=== PATIENT | male | born 1945 | race Caucasian/White ===

== ENCOUNTER 2017-04-01 15:51 | Emergency (ER) | payer OTHER ==
[~2017-04-01] VITALS: Ht 180.3 cm; Wt 96.6 kg
[~2017-04-01 15:51] MED LIST: ASPIRIN324 MG PO; CRESTOR20 MG; FISH OIL 10001000 MG PO; LISINOPRIL5 MG PO; LOMOTIL 0.025 M1 TAB PO; METOPROLOL50 MG PO; MULTIPLE VITAMI1 CAP PO; PLAVIX75 MG PO; RANEXA500 MG PO; ZOFRAN ODT8 MG PO
== END 2017-04-01 16:50 | disposition home or self-care (01) ==
LOC: ED 15:51
DX: S51.812A Laceration without foreign body of left forearm, initial encounter (principal); Z88.0 Allergy status to penicillin; Z79.899 Other long term (current) drug therapy; Z79.82 Long term (current) use of aspirin; W45.8XXA Other foreign body or object entering through skin, initial encounter; Y93.89 Activity, other specified; Y92.89 Other specified places as the place of occurrence of the external cause; Y99.8 Other external cause status

== ENCOUNTER 2017-04-13 13:54 | Emergency (ER) | payer OTHER | END 2017-04-13 14:10 | disposition home or self-care (01) | LOC: ED 13:54 | DX: S61.412D Laceration without foreign body of left hand, subsequent encounter (principal); X58.XXXD Exposure to other specified factors, subsequent encounter; Z79.82 Long term (current) use of aspirin ==

== ENCOUNTER 2017-10-11 05:01 | Emergency (ER) | payer OTHER ==
[~2017-10-11] VITALS: Ht 172.7 cm; Wt 77.1 kg
[2017-10-11 05:36] LABS: BASO % 0.3 % (0.0-1.0); EOS # 0.2 10*3/uL (0.0-0.4); EOS % 2.3 % (1.0-4.0); HEMATOCRIT 40.4 % (42.0-52.0); LYMPH # 2.1 10*3/uL (1.3-4.4); MEAN CELL VOLUME 96.9 fl (80.0-94.0); MEAN CORPUSCULAR HGB 33.6 pg (27.0-31.0); MEAN CORPUSCULAR HGB CONC 34.7 g/dl (33.0-37.0); MEAN PLATELET VOLUME 11.7 fl (9.6-12.3); MONO # 0.7 10*3/uL (0.1-1.0); MONO % 11.5 % (3.0-9.0); NEUT # 3.4 10*3/uL (2.3-7.9); NEUT % 52.7 % (47.0-73.0); PLATELET COUNT AUTOMATED 113 10*3/uL (130-400); RED BLOOD COUNT 4.17 10*6/uL (4.50-5.90); RED CELL DISTRI WIDTH 12.3 % (0-14.5); WHITE BLOOD COUNT 6.4 10*3/uL (4.8-10.8)
[2017-10-11 05:57] LABS: ALBUMIN 3.7 gm/dl (3.1-4.5); CREATININE 1.48 mg/dL (0.70-1.30); TOTAL PROTEIN 6.9 gm/dL (6.4-8.2)
[2017-10-11 05:58] LABS: TROPONIN I 0.045 ng/ml (<0.045)
[2017-10-11 06:03] LABS: THYROID STIM HORMONE (HS) 2.75 uIU/ml (0.358-4.75)
[2017-10-11] MEDS ORDERED: ATIVAN1 MG PO (07:09)
== END 2017-10-11 07:07 | disposition home or self-care (01) ==
LOC: ED 05:01
PROVIDERS: Emergency Medicine Emergency Medical Services
DX: F41.9 Anxiety disorder, unspecified (principal); F10.10 Alcohol abuse, uncomplicated; Z88.0 Allergy status to penicillin; Z79.899 Other long term (current) drug therapy; Z79.82 Long term (current) use of aspirin; Z95.4 Presence of other heart-valve replacement

== ENCOUNTER 2018-06-14 22:48 | Inpatient (IN) | payer MEDICARE ==
[~2018-06-14] VITALS: Ht 154.9 cm; Wt 95.3 kg
--- NOTE | ~2018-06-14 | EKG ---
[place], [place] ELECTROCARDIOGRAM REPORT NAME: DOMI SEAY UNIT #: [id number] ROOM: 518 DOCTOR: SHLOMO DRAFT REPORT BIRTHDATE: [birth year] [facility] Test Date: 2018-06-15 Test Time: 04:56:55 Pat Name: DOMI SEAY Department: Room: 518 Gender: M Refrigerating Engineer Head: Myke Beavers : 1945 Requested By: RANDI STOUT Order Number: [id number] Reading MD: Edu Whitehead MD Measurements Intervals [place] Rate: 46 P: 46 OK: 200 QRS: 55 QRSD: 101 T: 67 QT: 494 QTc: 432 Interpretive Statements Sinus bradycardia Probable left atrial enlargement Left ventricular hypertrophy Minimal ST elevation, anterolateral leads Compared to earlier ECG this date No significant change Electronically Signed On 06-16-2018 19:31:26 PST by Edu Whitehead MD CM:EKGRPT:ELECTROCARDIOGRAM REPORT [id number] 30 RANDI PERALES DRAFT REPORT RANDI STOUT DO
--- NOTE | ~2018-06-14 | EKG ---
[place], [place] ELECTROCARDIOGRAM REPORT NAME: DOMI SEAY UNIT #: [id number] ROOM: 518 DOCTOR: SHLOMO DRAFT REPORT BIRTHDATE: [birth year] [facility] Test Date: 2018-06-15 Test Time: 01:35:54 Pat Name: DOMI SEAY Department: Room: 518 Gender: M Field Supervisor: Myke Beavers : 1945 Requested By: RANDI STOUT Order Number: [id number] Reading MD: Edu Whitehead MD Measurements Intervals [place] Rate: 43 P: 44 MD: 188 QRS: 50 QRSD: 103 T: 56 QT: 544 QTc: 461 Interpretive Statements Sinus bradycardia Probable left atrial enlargement ST elevation, consider anterior injury Compared to 06/14/28 No significant change Electronically Signed On 06-16-2018 19:29:53 PST by Edu Whitehead MD CM:EKGRPT:ELECTROCARDIOGRAM REPORT 28 RANDI PERALES DRAFT REPORT RANDI STOUT DO
--- NOTE | ~2018-06-14 | EKG ---
[place], [place] ELECTROCARDIOGRAM REPORT NAME: DOMI SEAY UNIT #: [id number] ROOM: 518 DOCTOR: SHLOMO DRAFT REPORT BIRTHDATE: [birth year] [facility] Test Date: 2018-06-14 Test Time: 22:49:51 Pat Name: DOMI SEAY Department: Room: 518 Gender: M Rn Pediatric: Myke Beavers : 1945 Requested By: RANDI STOUT Order Number: [id number] Reading MD: Edu Whitehead MD Measurements Intervals [place] Rate: 50 P: 60 AL: 206 QRS: 54 QRSD: 98 T: 56 QT: 516 QTc: 471 Interpretive Statements Sinus rhythm Probable left atrial enlargement Left ventricular hypertrophy Nonspecific ST-T changes Electronically Signed On 06-16-2018 19:26:39 PST by Edu Whitehead MD CM:EKGRPT:ELECTROCARDIOGRAM REPORT 25 RANDI PERALES DRAFT REPORT RANDI STOUT DO
[~2018-06-14 22:48] MED LIST changes: +ATIVAN1 MG PO; +CRESTOR20 M1 PO; -CRESTOR20 MG; -FISH OIL 10001000 MG PO; +FISH OIL CONC1000 M1 PO
[2018-06-14 22:51] VITALS: BP 179/75
--- NOTE | 2018-06-14 23:03 | NUR ---
PT STATES HE TOOK 2 BABY ASPIRIN BEFORE ARRIVAL APROX 2200 HRS
[2018-06-14 23:06] LABS: BASO % 0.2 % (0.0-1.0); EOS # 0.1 10*3/uL (0.0-0.4); EOS % 1.7 % (1.0-4.0); HEMATOCRIT 44.8 % (42.0-52.0); HEMOGLOBIN 15.4 g/dl (14.0-18.0); LYMPH # 2.2 10*3/uL (1.3-4.4); LYMPH % 32.5 % (27.0-41.0); MEAN CORPUSCULAR HGB 34.4 pg (27.0-31.0); MEAN CORPUSCULAR HGB CONC 34.4 g/dl (33.0-37.0); MEAN PLATELET VOLUME 11.9 fl (9.6-12.3); MONO # 0.7 10*3/uL (0.1-1.0); NEUT # 3.6 10*3/uL (2.3-7.9); NEUT % 54.3 % (47.0-73.0); PLATELET COUNT AUTOMATED 131 10*3/uL (130-400); RED BLOOD COUNT 4.48 10*6/uL (4.50-5.90); RED CELL DISTRI WIDTH 13.2 % (0-14.5); WHITE BLOOD COUNT 6.6 10*3/uL (4.8-10.8)
[2018-06-14 23:15] LABS: INTERNATIONAL NORM RATIO 1.1 (2.0-3.5)
[2018-06-14 23:16] VITALS: BP 179/75
[2018-06-14 23:24] LABS: ALBUMIN 3.8 gm/dl (3.1-4.5); CREATININE 1.57 mg/dL (0.70-1.30); POTASSIUM 4.5 mmol/L (3.5-5.1); TOTAL PROTEIN 7.4 gm/dL (6.4-8.2)
[2018-06-14 23:25] LABS: TROPONIN I 0.016 ng/ml (<0.045)
[2018-06-14] MEDS ORDERED: ASPIRIN ADULT L81 M1 PO (23:29)
[2018-06-14] MEDS ORDERED: METOPROLOL SUCC25 M2 PO (23:32)
[2018-06-14] MEDS ORDERED: RAMIPRIL2.5 MG PO (23:33)
[2018-06-14 23:43] VITALS: BP 124/52
--- NOTE | 2018-06-14 23:47 | NUR ---
PT [facility] PHONE [phone] CELL # [phone]
[2018-06-15 00:30] VITALS: BP 152/78
--- NOTE | 2018-06-15 00:30 | NUR ---
Time: 29 A 73 year old MALE admitted to 5E under services of DEVIKA MATHUR DO Pt. arrived via bed from ER. Chief complaint: PT STATES WHEN HE WAS AT HOME HE HAD A BURNING SENSATION RADIATE DOWN HIS LEFT ARM. HE CAME IN TO MAKE SURE EVERYTHING WAS OKAY DUE TO HIS CARDIAC HISTORY. HE DENIES HAVING CHEST PAIN WHEN THE EVENT OCCURED. HEALTHY LIFESTYLES GUIDELINE REVIEWED. PT ORIENTED TO ROOM, BED, & CALL LIGHT. ASSESSMENT COMPLETE. HE VOICES NO COMPLAINTS AT THIS TIME. SHADY ALDANA
--- NOTE | 2018-06-15 00:55 | NUR ---
MED REC UP TO DATE PER PATIENT RECALL/LIST PROVIDED BY PATIENT. STATES HE USES [facility].
--- NOTE | 2018-06-15 02:04 | NUR ---
DR. ENZO BABCOCK ANSWERING SERVICE NOTIFIED OF CONSULT FOR PRECORDIAL CHEST PAIN.
--- NOTE | 2018-06-15 04:17 | NUR ---
PT IS RESTING IN BED AT THIS TIME WITH NO S/S OF PAIN OR DISTRESS. RESPIRATIONS ARE EASY AND UNLABORED ON ROOM AIR. HE IS CURRENTLY SINUS LOUIS ON THE MONITOR WITH A HEART RATE IN THE MID-40'S. HE STATES THAT THIS IS NORMAL FOR HIM. BED IS LOCKED AND IN LOWEST POSITION AND CALL LIGHT IS WITHIN REACH. WILL CONTINUE TO MONITOR PT.
--- NOTE | 2018-06-15 07:59 | NUR ---
PT RESTING IN BED, PT UPSET AND FEELS THAT A STRESS TEST IS NOT NECESSARY, PT EDUCATED ON THE BENEFITS OF HAVING THE TEST DONE PT AGREEABLE
[2018-06-15 08:00] VITALS: BP 144/74
--- NOTE | 2018-06-15 09:48 | NUR ---
INFORMED SIGNED CONSENT OBTAINED FOR LEXISCAN STRESS TEST WITH DR XIONG. RESTING EKG SINUS BRADYCARDIA HR 51 BP 90/50. PULSE OX 98% LUNGS CLEAR. PT COMPLETED ONE MINUTE OF A LEXISCAN PROTOCOL WITH PT RECEIVING LEXISCAN 0.4MG IV OVER 10 SECONDS. PVC'S NOTED. NO ST CHANGES SEEN. PT C/O A FLUSHED FEELING WITH INJECTION. LAST RECOVERY HR OF 58 BP 100/48. PT IN STABLE CONDITION, AWAITING NUCLEAR IMAGES.
[2018-06-15 12:00] VITALS: BP 134/68
--- NOTE | 2018-06-15 15:03 | NUR ---
Supervisor [employer] in to talk to patient. Patient states lives at HOME with . There are SEVERAL steps in the home. Physician: STEPHAN Pharmacy: [facility] Home health services: NONE Patient's level of ADLs: INDEPENDENT Patient has working utilities: YES DME: NONE Follow-up physician's appointment after d/c: WILL BE MADE BY HOSPITALIST NURSE DIRECTOR ON DISCHARGE Does patient want to access PORTAL?: NO Discharge plan PT STATES HE LIVES AT HOME WITH AND IS INDEPENDENT IN CARE. DENIES ANY HOME NEEDS ON [place]. PT STATES WILL TAKE HIM HOME. WILL CONTINUE TO FOLLOW.. [facility] STERLING
--- NOTE | 2018-06-15 15:28 | NUR ---
SPOKE WITH DR PARKER MORALES PT HR 48-50S AND BP 134/68 DR PARKER MERA WITH PT GETTING TOPROL
[2018-06-15 16:00] VITALS: BP 148/60
--- NOTE | 2018-06-15 17:33 | NUR ---
Discharge instructions reviewed with patient/family. Patient receptive and verbalizes understanding. Follow-up care arranged. Written instructions given to patient/family. ROCHELLE VALENZUELA
== END 2018-06-15 17:33 | disposition home or self-care (01) | DRG 313 ==
LOC: ED 22:48 → 5E 23:50 → EDHOLD 23:50 → 5E 06-15 00:09
PROVIDERS: Emergency Medicine; ADMIT Internal Medicine
PROC: 3E073KZ Introduction of Other Diagnostic Substance into Coronary Artery, Percutaneous Approach (ICD-10-PCS; principal; 2018-06-15)
PROC: 4A02XM4 Measurement of Cardiac Total Activity, External Approach (ICD-10-PCS; principal; 2018-06-15)
DX: R07.89 Other chest pain (principal); I25.810 Atherosclerosis of coronary artery bypass graft(s) without angina pectoris; I12.9 Hypertensive chronic kidney disease with stage 1 through stage 4 chronic kidney disease, or unspecified chronic kidney disease; N18.3 Chronic kidney disease, stage 3 (moderate); F41.9 Anxiety disorder, unspecified; L90.5 Scar conditions and fibrosis of skin; E78.5 Hyperlipidemia, unspecified; D75.89 Other specified diseases of blood and blood-forming organs; Z95.1 Presence of aortocoronary bypass graft; Z95.2 Presence of prosthetic heart valve; Z88.0 Allergy status to penicillin; Z80.9 Family history of malignant neoplasm, unspecified; Z87.891 Personal history of nicotine dependence; Z79.82 Long term (current) use of aspirin; Z79.899 Other long term (current) drug therapy; I25.2 Old myocardial infarction

== ENCOUNTER 2019-12-30 21:14 | Emergency (ER) | payer MEDICARE ==
[~2019-12-30] VITALS: Ht 180.3 cm; Wt 99.1 kg
[~2019-12-30 21:14] MED LIST changes: +ASPIRIN ADULT L81 M1 PO; +METOPROLOL SUCC25 M2 PO; +RAMIPRIL2.5 MG PO
[2019-12-30 21:30] LABS: BASO % 0.3 % (0.0-1.0); EOS # 0.1 10*3/uL (0.0-0.4); EOS % 1.7 % (1.0-4.0); HEMATOCRIT 47.9 % (42.0-52.0); LYMPH # 2.7 10*3/uL (1.3-4.4); LYMPH % 36.3 % (27.0-41.0); MEAN CORPUSCULAR HGB 32.9 pg (27.0-31.0); MEAN CORPUSCULAR HGB CONC 34.2 g/dl (33.0-37.0); MONO # 0.7 10*3/uL (0.1-1.0); MONO % 9.4 % (3.0-9.0); NEUT # 3.9 10*3/uL (2.3-7.9); NEUT % 52.2 % (47.0-73.0); PLATELET COUNT AUTOMATED 143 10*3/uL (130-400); RED BLOOD COUNT 4.99 10*6/uL (4.50-5.90); RED CELL DISTRI WIDTH 11.9 % (0-14.5); WHITE BLOOD COUNT 7.5 10*3/uL (4.8-10.8)
[2019-12-30 21:58] LABS: ACT PARTIAL THROMBO TIME 25.5 SECONDS (20.0-32.1); INTERNATIONAL NORM RATIO 1.1 (2.0-3.5)
[2019-12-30 22:03] LABS: ALBUMIN 3.8 gm/dl (3.1-4.5); CREATININE 1.7 mg/dL (0.70-1.30); POTASSIUM 3.9 mmol/L (3.5-5.1); TOTAL PROTEIN 7.2 gm/dL (6.4-8.2)
[2019-12-30 22:06] LABS: TROPONIN I 0.091 ng/ml (<0.045)
== END 2019-12-30 22:50 | disposition short-term general hospital (02) ==
LOC: ED 21:14
PROVIDERS: Emergency Medicine
DX: I21.3 ST elevation (STEMI) myocardial infarction of unspecified site (principal); Z88.0 Allergy status to penicillin; Z79.899 Other long term (current) drug therapy; Z79.82 Long term (current) use of aspirin; Z87.891 Personal history of nicotine dependence

== ENCOUNTER 2020-01-02 02:29 | Observation (INO) | payer MEDICARE ==
[2020-01-02] VITALS (10 sets, daily range): BP systolic 108–149; BP diastolic 68–92
[~2020-01-02] VITALS: Ht 180.3 cm; Wt 99.4 kg
[2020-01-02 02:52] LABS: BASO % 0.2 % (0.0-1.0); EOS # 0.2 10*3/uL (0.0-0.4); EOS % 1.7 % (1.0-4.0); LYMPH # 2.3 10*3/uL (1.3-4.4); LYMPH % 27.1 % (27.0-41.0); MEAN CELL VOLUME 93.6 fl (80.0-94.0); MEAN CORPUSCULAR HGB 32.8 pg (27.0-31.0); MEAN CORPUSCULAR HGB CONC 35.1 g/dl (33.0-37.0); MEAN PLATELET VOLUME 11.5 fl (9.6-12.3); NEUT # 5.2 10*3/uL (2.3-7.9); PLATELET COUNT AUTOMATED 143 10*3/uL (130-400); RED BLOOD COUNT 4.81 10*6/uL (4.50-5.90); RED CELL DISTRI WIDTH 11.7 % (0-14.5); WHITE BLOOD COUNT 8.6 10*3/uL (4.8-10.8)
[2020-01-02 03:03] LABS: ACT PARTIAL THROMBO TIME 26.1 SECONDS (20.0-32.1); INTERNATIONAL NORM RATIO 1.1 (2.0-3.5)
[2020-01-02 03:20] LABS: ALBUMIN 3.9 gm/dl (3.1-4.5); CREATININE 1.41 mg/dL (0.70-1.30); POTASSIUM 3.9 mmol/L (3.5-5.1); TOTAL PROTEIN 7.4 gm/dL (6.4-8.2)
--- NOTE | 2020-01-02 04:01 | NUR ---
PATIENT SITTING UP IN BED AT THIS TIME. NO DISTRESS NOTED. RESPIRATIONS EASY, NON-LABORED ON ROOM AIR. FAMILY UPDATED AT THIS TIME. PER PATIENT HE DOES NOT WANT FLUIDS OR ATIVAN AT THIS TIME, DR INGRAM AWARE. RN WILL CONTINUE TO MONITOR.
--- NOTE | 2020-01-02 06:10 | NUR ---
A 74, admitted to , under the services of HANSA Damon DO with a diagnosis of NEW ONSET AFIB. Chief complaint is "I FEEL LIKE I FEEL WHEN I WAS HERE ON FRIDAY BEFORE I WAS FLOWN OUT AND I KNEW SOMETHING WASN'T RIGHT. I JUST FEEL FUNNY". Patient arrived via wheel chair from ER. Monitor applied. Initial assessment completed. Vital signs taken and recorded. HANSA DAMON DO notified of admission to the unit. Orders received. See assessment for past medical history, medications and allergies. Patient and/or family oriented to unit. [address] visitation policy reviewed. Clothing/patient valuable form completed. RAPHAEL GONZALEZ
--- NOTE | 2020-01-02 06:18 | NUR ---
HERPARIN STARTED AT THIS TIME PER ORDER. VERIFIED BY THIS RN AND KENNETH MANSFIELD.
--- NOTE | 2020-01-02 06:20 | NUR ---
SCABS AND SCRATCHES NOTED TO BOTH FEET. PATIENT STATES "I WAS RETILING MY KITCHEN."
--- NOTE | 2020-01-02 06:36 | NUR ---
ANSWERING SERVICE NOTIFIED OF NEW CONSULT.
--- NOTE | 2020-01-02 08:15 | NUR ---
RESTING IN BED WITH NO ACUTE DISTRESS NOTED. RESPIRATIONS EASY. LUNGS DIMINISHED, CLEAR. PULSE OX 96% RA, DENIES SOB OR CHEST PAIN. HEPARIN INFUSING PER ORDER. CALL LIGHT WITHIN REACH. NO VOICED COMPLAINTS
--- NOTE | 2020-01-02 08:24 | NUR ---
24 HR chart check completed.
[2020-01-02] MEDS ORDERED: PANTOPRAZOLE SO40 MG PO (08:50)
[2020-01-02] MEDS ORDERED: RAMIPRIL1.25 MG PO (08:52)
--- NOTE | 2020-01-02 09:00 | NUR ---
DR Jeny MILLER PRESENT ON FLOOR. INFORMED OF CRITICAL TROPS, TRENDING DOWN. CARDIOLOGY ON CONSULT. PATIENT ASYMPTOMATIC. NO NEW ORDERS RECEIVED AT THIS TIME
--- NOTE | 2020-01-02 09:30 | NUR ---
C/O SOB. PULSE OX 96% RA. HR 88. PATIENT GIVEN O2 FOR COMFORT. UNSURE OF CHANGES TO HOME MEDS, PATIENT CONTACTING FOR UPDATED LIST
[2020-01-02] MEDS ORDERED: BRILINTA90 M1 PO (09:42)
--- NOTE | 2020-01-02 09:45 | NUR ---
HOME MEDS REVIEWED WITH PATIENT, UPDATED IN MED REC. DR ROME PRESENT ON FLOOR AND INFORMED OF CHANGES
[2020-01-02] MEDS ORDERED: Lopressor25 MG PO (09:48)
--- NOTE | 2020-01-02 14:00 | NUR ---
CALLED TO ROOM BY PATIENT, REQUESTING UPDATE. LABS AND EKG'S REVIEWED. PLAN OF CARE REVIEWED. PATIENT CLAIMS HE WAS TOLD EKG'S WOULD BE REVIEWED AND HE WOULD BE DISCHARGED BY 1400. CARDIOLOGY ON CONSULT.
--- NOTE | 2020-01-02 14:15 | NUR ---
DR Jeny MILLER PRESENT ON FLOOR TO DISCUSS CONCERNS AND PLAN OF CARE WITH PATIENT
--- NOTE | 2020-01-02 14:30 | NUR ---
HEPARIN DRIP ADJUSTED. DR BABCOCK PRESENT ON FLOOR TO ASSESS PATIENT AND DISCUSS PLAN OF CARE. DR Jeny MILLER ALSO PRESENT
--- NOTE | 2020-01-02 15:15 | NUR ---
HEPARIN DRIP D/C'D. NPO AFTER MIDNIGHT STATUS REVIEWED FOR TESTING IN AM
--- NOTE | 2020-01-02 18:00 | NUR ---
RESTING IN BED WITH NO ACUTE DISTRESS NOTED. RESPIRATIONS EASY. O2 REMAINS AT BEDSIDE FOR PRN/COMFORT USE. NO COMPLAINTS OF CHEST PAIN. CALL LIGHT WITHIN REACH.
--- NOTE | 2020-01-02 20:20 | NUR ---
IN TO ASSESS PATIENT. PATIENT COOPERATIVE, DENIES ANY COMPLAINTS AT THIS TIME. 2L NC INTACT FOR COMFORT. ASKED PATIENT IF HE KNOWS WHAT PROCEDURE WILL BE HAPPENING TOMORROW, HE STATED THAT HE DOES BUT THAT HE DIDN'T EXPECT IT TO BE ALL OF THAT AND THAT HE SUPPOSES IT HAS TO BE DONE. ASKED PATIENT IF HE HAD ANY QUESTIONS ABOUT THE PROCEDURE TO HELP EASE HIS MIND, HE STATED HE DOES NOT. ALSO MADE PATIENT AWARE OF NPO STATUS AFTER MIDNIGHT. HE VERBALIZED UNDERSTANDING. EXPLAINED TO PATIENT THAT WE WILL HAVE TO GET HIS VITALS ONE MORE TIME TONIGHT AND THEN HE CAN SLEEP. EXPLAINED TO PATIENT TO ASK FOR ANYTHING IF HE NEEDS IT. CALL LIGHT LEFT WITHIN REACH, WILL MONITOR
--- NOTE | 2020-01-02 22:42 | NUR ---
NOTIFIED DR. LYLE AT THIS TIME OF PATIENTS PAUSE FOLLOWED BY CONVERSION TO NORMAL SINUS RHYTHM WITH FREQUENT PAC'S. EXPLAINED TO HER THAT AN EKG WAS ORDERED AND DR. BABCOCK WILL BE MADE AWARE SOON THE EKG IS AVAILABLE.
--- NOTE | 2020-01-02 23:06 | NUR ---
PAGED DR. BABCOCK AT THIS TIME PERTAINING TO PATIENTS HEART RHYTHM
--- NOTE | 2020-01-02 23:10 | NUR ---
DR. BABCOCK AT THIS TIME UPDATED ON PATIENT'S EKG AND CONVERSION TO NORMAL SINUS FOLLOWED BY A LONG PAUSE AND PATIENT APPEARING TO NOW HAVE PAC'S. PATIENT ASYMPTOMATIC AND WAS SLEEPING WHEN THIS HAPPENED. DR. BABCOCK STATED THE PAUSE WILL HAPPEN BUT TO KEEP THE PATIENT NPO JUST INCASE THE PATIENT WERE TO FLIP BACK INTO AFIB AND HE WILL BE IN, IN THE MORNING
--- NOTE | 2020-01-02 23:12 | NUR ---
PATIENT UPDATED ON STATUS, HEART RHYTHM AND WHAT DR. BABCOCK WAS NOTIFIED OF AND WHAT HE SAID. EXPLAINED TO PATIENT THAT HE HAS TO REMAIN NPO IN CASE HIS HEART WERE TO FLIP BACK INTO AN ABNORMAL RHYTHM. PATIENT VERBALIZED UNDERSTANDING AND WAS ASKED IF HE HAD ANY QUESTIONS. PATIENT STATED HE DID AND THAT HE WOULD ASK THE IC DESIGN ENGINEER IN THE MORNING ABOUT MEDICATIONS HE MAY HAVE TO BE PUT ON FOR THIS RHYTHM. CALL LIGHT WITHIN REACH. WILL MONITOR
[2020-01-03] VITALS: BP 125/72
--- NOTE | 2020-01-03 01:20 | NUR ---
PATIENT SLEEPING. NO DISTRESS NOTED. PER AUTO BODY MECHANIC PATIENT IS STILL IN NORMAL SINUS RHYTHM WITH FREQUENT PAC'S. WITH A HEART RATE IN THE 50'S PATIENT HAS 2L NC INTACT FOR COMFORT MEASURES. CALL LIGHT WITHIN REACH, WILL MONITOR
--- NOTE | 2020-01-03 01:23 | NUR ---
24 HR chart check completed.
--- NOTE | 2020-01-03 02:08 | NUR ---
PATIENT REMAINS ASLEEP, BUT NOTICED ON COSMETIC CHEMIST THAT PATIENT IS BACK IN AFIB/AFLUTTER. HEART RATE REMAINS CONTROLLED. PATIENT SLEEPING WITH 2L O2 INTACT. CALL LIGHT WITHIN REACH, WILL MONITOR
--- NOTE | 2020-01-03 06:37 | NUR ---
ATTEMPTED TO GET PATIENT WASHED UP FOR HIS ALESSANDRO/CARDIOVERSION. PATIENT STATED HE DIDN'T THINK THE SURGERY WAS GOING TO HAPPEN TODAY BECAUSE OF HIM GOING BACK TO A NORMAL RHYTHM LAST NIGHT. NOTIFIED PATIENT THAT HE DID END UP GOING BACK INTO THE IRREGULAR RHYTHM AND THAT MORE THAN LIKELY HE WILL STILL HAVE TO GO FOR THE PROCEDURE. PATIENT STATED "IT IS WHAT IT IS". WHEN ATTEMPTING TO GET THE PATIENT WASHED UP HE REFUSED BECAUSE HE DOESN'T UNDERSTAND HOW HE CAN PROPERLY WASH UP WITH "ALL THESE WIRES AND STUFF ON HIM". PATIENT CONTINUED TO GET UPSET AND STATED HE WOULDN'T GET WASHED UP. ALSO SPOKE WITH PO IN SURGERY, SHE STATED TO NOTIFY THE NUTRITIONAL CHEMIST ABOUT 8AM THAT THE PATIENT DID GO BACK INTO AFIB THROUGHOUT THE NIGHT.
--- NOTE | 2020-01-03 06:51 | NUR ---
aKela COOPER caring for patient asked this nurse to see patient's left dorsal great toe, left 2nd toe and dorsal right foot. 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 Patient states these areas do not bother him and does not want any treatment to these areas at this time. Kaela RN present during assessment.
[2020-01-03 06:52] LABS: BASO % 0.3 % (0.0-1.0); EOS # 0.2 10*3/uL (0.0-0.4); HEMATOCRIT 46.2 % (42.0-52.0); LYMPH % 25.5 % (27.0-41.0); MEAN CELL VOLUME 95.3 fl (80.0-94.0); MEAN CORPUSCULAR HGB CONC 34.6 g/dl (33.0-37.0); MEAN PLATELET VOLUME 11.5 fl (9.6-12.3); MONO # 0.9 10*3/uL (0.1-1.0); MONO % 11.3 % (3.0-9.0); NEUT # 4.6 10*3/uL (2.3-7.9); NEUT % 59.8 % (47.0-73.0); PLATELET COUNT AUTOMATED 144 10*3/uL (130-400); RED BLOOD COUNT 4.85 10*6/uL (4.50-5.90); RED CELL DISTRI WIDTH 12.1 % (0-14.5); WHITE BLOOD COUNT 7.7 10*3/uL (4.8-10.8)
[2020-01-03 07:05] LABS: POTASSIUM 4.4 mmol/L (3.5-5.1)
[2020-01-03 07:17] LABS: CREATININE 1.42 mg/dL (0.70-1.30); THYROID STIM HORMONE (HS) 2.77 uIU/ml (0.358-4.75)
[2020-01-03 08:00] VITALS: BP 140/90
[2020-01-03 09:30] VITALS: BP 135/88
--- NOTE | 2020-01-03 09:35 | NUR ---
PT TAKEN OFF FLOOR FOR SURGERY.
[2020-01-03 12:00] VITALS: BP 132/76
--- NOTE | 2020-01-03 13:06 | NUR ---
Management And Budget Analyst in to talk to patient. Patient states lives at home with and son. There are 2 steps in the home. Physician: jacky mead [facility]: no Patient's level of ADLs: INDEPENDENT Patient has working utilities: all working DME: none Follow-up physician's appointment after d/c: will be made by hospitalist nurse director upon discharge Does patient want to access PORTAL?: no Discharge plan discussed with patient, he lives at home with and son he is independent in adls and ambulation, he states he will return home when discharged and denies any home needs, case management will follow. DAMION CARDONA
[2020-01-03] MEDS ORDERED: LOPRESSOR25 MG PO (14:12)
[2020-01-03] MEDS ORDERED: XARE20MG PO (14:12)
--- NOTE | 2020-01-03 15:12 | NUR ---
Discharge instructions reviewed with patient/family. Patient receptive and verbalizes understanding. Follow-up care arranged. Written instructions given to patient/family. HEPLOCK DISCONTINUED. PATIENT AMBULATORY OFF FLOOR TO PHARMACY TO FINISH MOLDER MEDICATIONS. NESSA BARRERA
== END 2020-01-03 15:12 | disposition home or self-care (01) ==
LOC: ED 02:29 → 4E 05:26 → EDHOLD 05:26 → 4E 05:26
PROVIDERS: Emergency Medicine Emergency Medical Services; Student in an Organized Health Care Education/Training Program; ADMIT Student in an Organized Health Care Education/Training Program
DX: I48.91 Unspecified atrial fibrillation (principal); E87.8 Other disorders of electrolyte and fluid balance, not elsewhere classified; R73.9 Hyperglycemia, unspecified; I12.9 Hypertensive chronic kidney disease with stage 1 through stage 4 chronic kidney disease, or unspecified chronic kidney disease; N18.3 Chronic kidney disease, stage 3 (moderate); F41.9 Anxiety disorder, unspecified; E78.5 Hyperlipidemia, unspecified; K21.9 Gastro-esophageal reflux disease without esophagitis; R07.89 Other chest pain

== ENCOUNTER 2020-01-25 16:57 | Emergency (ER) | payer MEDICARE ==
[~2020-01-25] VITALS: Ht 180.3 cm; Wt 97.1 kg
[~2020-01-25 16:57] MED LIST changes: +BRILINTA90 M1 PO; +LOPRESSOR25 MG PO; +Lopressor25 MG PO; +PANTOPRAZOLE SO40 MG PO; +RAMIPRIL1.25 MG PO; +XARE20MG PO
[2020-01-25 18:33] LABS: BASO % 0.1 % (0.0-1.0); EOS % 0.1 % (1.0-4.0); HEMATOCRIT 42.7 % (42.0-52.0); LYMPH # 1.2 10*3/uL (1.3-4.4); LYMPH % 8.7 % (27.0-41.0); MEAN CELL VOLUME 94.1 fl (80.0-94.0); MEAN CORPUSCULAR HGB 32.6 pg (27.0-31.0); MEAN CORPUSCULAR HGB CONC 34.7 g/dl (33.0-37.0); MEAN PLATELET VOLUME 11.8 fl (9.6-12.3); MONO # 1.4 10*3/uL (0.1-1.0); MONO % 9.9 % (3.0-9.0); NEUT # 11.4 10*3/uL (2.3-7.9); NEUT % 80.8 % (47.0-73.0); PLATELET COUNT AUTOMATED 133 10*3/uL (130-400); RED BLOOD COUNT 4.54 10*6/uL (4.50-5.90); RED CELL DISTRI WIDTH 12.1 % (0-14.5); WHITE BLOOD COUNT 14.1 10*3/uL (4.8-10.8)
[2020-01-25 18:47] LABS: INTERNATIONAL NORM RATIO 1.6 (2.0-3.5)
[2020-01-25 18:52] LABS: ALBUMIN 3.8 gm/dl (3.1-4.5); ALKALINE PHOSPHATASE 73 U/L (45-117); BUN 16 mg/dl (7-24); CHLORIDE 107 mmol/L (98-107); CREATININE 1.38 mg/dL (0.70-1.30); LIPASE 105 U/L (73-393); POTASSIUM 3.9 mmol/L (3.5-5.1); SGOT/AST 18 IU/L (3-35); SGPT/ALT 30 U/L (12-78); SODIUM 137 mmol/L (136-145); TOTAL PROTEIN 7.5 gm/dL (6.4-8.2)
[2020-01-25 18:53] LABS: TROPONIN I 0.041 ng/ml (<0.045)
[2020-01-25 19:58] LABS: BILIRUBIN NEGATIVE; BLOOD 3+ (NEGATIVE); CLARITY CLOUDY (CLEAR); COLOR YELLOW (YELLOW); GLUCOSE NEGATIVE; KETONE NEGATIVE
[2020-01-25 19:59] LABS: LEUKO ESTERASE 2+ (NEGATIVE); NITRITE NEGATIVE (NEGATIVE); PH 5.5 (4.5-8.0)
[2020-01-25 20:06] LABS: BACTERIA 4+; EPITHELIAL CELLS 0-2; RBC 0-2 rbc/hpf (0-2); WBC TNTC wbc/hpf (0-5)
[2020-01-25] MEDS ORDERED: OMNICEF300 MG PO (20:12)
== END 2020-01-25 20:12 | disposition home or self-care (01) ==
LOC: ED 16:57
PROVIDERS: Physician Assistant
DX: N39.0 Urinary tract infection, site not specified (principal); Z88.0 Allergy status to penicillin; Z79.899 Other long term (current) drug therapy; Z95.1 Presence of aortocoronary bypass graft; Z20.828 Contact with and (suspected) exposure to other viral communicable diseases

== ENCOUNTER 2020-12-23 10:04 | Emergency (ER) | payer MEDICARE ==
[~2020-12-23] VITALS: Ht 172.7 cm; Wt 100.7 kg
[~2020-12-23 10:04] MED LIST changes: +OMNICEF300 MG PO
[2020-12-23 10:23] LABS: BASO % 0.4 % (0.0-1.0); EOS # 0.1 10*3/uL (0.0-0.4); EOS % 1.4 % (1.0-4.0); HEMATOCRIT 43.4 % (42.0-52.0); LYMPH # 1.5 10*3/uL (1.3-4.4); LYMPH % 31.1 % (27.0-41.0); MEAN CELL VOLUME 95.4 fl (80.0-94.0); MEAN CORPUSCULAR HGB CONC 34.6 g/dl (33.0-37.0); MEAN PLATELET VOLUME 10.8 fl (9.6-12.3); MONO # 0.4 10*3/uL (0.1-1.0); MONO % 8.4 % (3.0-9.0); NEUT # 2.9 10*3/uL (2.3-7.9); NEUT % 58.5 % (47.0-73.0); PLATELET COUNT AUTOMATED 136 10*3/uL (130-400); RED BLOOD COUNT 4.55 10*6/uL (4.50-5.90); RED CELL DISTRI WIDTH 12.4 % (0-14.5); WHITE BLOOD COUNT 4.9 10*3/uL (4.8-10.8)
[2020-12-23 10:39] LABS: ALBUMIN 3.9 gm/dl (3.1-4.5); ALKALINE PHOSPHATASE 78 U/L (45-117); BUN 19 mg/dl (7-24); CHLORIDE 109 mmol/L (98-107); CREATININE 1.24 mg/dL (0.70-1.30); SGOT/AST 22 IU/L (3-35); SGPT/ALT 35 U/L (12-78); SODIUM 140 mmol/L (136-145); TOTAL PROTEIN 7.3 gm/dL (6.4-8.2)
[2020-12-23 10:49] LABS: TROPONIN I < 0.015 ng/ml (<0.045)
[2020-12-23] MEDS ORDERED: LOPRESSOR25 MG PO (12:21)
== END 2020-12-23 12:43 | disposition home or self-care (01) ==
LOC: ED 10:04
PROVIDERS: Student in an Organized Health Care Education/Training Program
DX: R42 Dizziness and giddiness (principal); R07.89 Other chest pain; Z88.0 Allergy status to penicillin; Z79.899 Other long term (current) drug therapy; Z79.2 Long term (current) use of antibiotics; Z98.61 Coronary angioplasty status; Z87.891 Personal history of nicotine dependence

== ENCOUNTER 2021-03-08 09:25 | Emergency (ER) | payer MEDICARE ==
[~2021-03-08] VITALS: Ht 180.3 cm; Wt 93.0 kg
[2021-03-08 10:05] LABS: BASO % 0.2 % (0.0-1.0); EOS # 0.1 10*3/uL (0.0-0.4); EOS % 1.3 % (1.0-4.0); HEMATOCRIT 47.7 % (42.0-52.0); LYMPH # 1.5 10*3/uL (1.3-4.4); LYMPH % 27.9 % (27.0-41.0); MEAN CORPUSCULAR HGB 32.4 pg (27.0-31.0); MEAN CORPUSCULAR HGB CONC 33.8 g/dl (33.0-37.0); MEAN PLATELET VOLUME 11.1 fl (9.6-12.3); MONO # 0.8 10*3/uL (0.1-1.0); MONO % 14.5 % (3.0-9.0); NEUT # 3.1 10*3/uL (2.3-7.9); NEUT % 55.9 % (47.0-73.0); PLATELET COUNT AUTOMATED 126 10*3/uL (130-400); RED BLOOD COUNT 4.97 10*6/uL (4.50-5.90); RED CELL DISTRI WIDTH 12.1 % (0-14.5); WHITE BLOOD COUNT 5.5 10*3/uL (4.8-10.8)
[2021-03-08] MEDS ORDERED: ELIQUIS5 M1 PO (10:09)
[2021-03-08] MEDS ORDERED: AMLODIPINE BESYL5 MG PO (10:09)
[2021-03-08 10:10] LABS: ACT PARTIAL THROMBO TIME 30.6 SECONDS (20.0-32.1); INTERNATIONAL NORM RATIO 1.2 (2.0-3.5)
[2021-03-08] MEDS ORDERED: PLAVIX75 M1 PO (10:10)
[2021-03-08] MEDS ORDERED: ZOLOFT25 MG PO (10:10)
[2021-03-08 10:13] LABS: ALBUMIN 3.9 gm/dl (3.1-4.5); ALKALINE PHOSPHATASE 85 U/L (45-117); BUN 21 mg/dl (7-24); CHLORIDE 104 mmol/L (98-107); CREATININE 1.44 mg/dL (0.70-1.30); LIPASE 95 U/L (73-393); POTASSIUM 3.9 mmol/L (3.5-5.1); SGOT/AST 36 IU/L (3-35); SGPT/ALT 46 U/L (12-78); SODIUM 137 mmol/L (136-145); TOTAL PROTEIN 7.8 gm/dL (6.4-8.2)
[2021-03-08 10:14] LABS: TROPONIN I < 0.015 ng/ml (<0.045)
[2021-03-08] MEDS ORDERED: ZITHROMAX250 MG PO (12:22)
== END 2021-03-08 12:45 | disposition home or self-care (01) ==
LOC: ED 09:25
PROVIDERS: Emergency Medicine
DX: J20.9 Acute bronchitis, unspecified (principal); Z88.0 Allergy status to penicillin; Z79.899 Other long term (current) drug therapy; Z87.891 Personal history of nicotine dependence

== ENCOUNTER → 2022-05-24 | Outpatient (CLI) | payer OTHER ==
[~2022-05-24] MED LIST changes: +AMLODIPINE BESYL5 MG PO; +ELIQUIS5 M1 PO; +PLAVIX75 M1 PO; +ZITHROMAX250 MG PO; +ZOLOFT25 MG PO
== END | disposition home or self-care (01) ==
LOC: US 13:58
PROVIDERS: ATTEND Physician Assistant
DX: N28.1 Cyst of kidney, acquired (principal); N18.31 Chronic kidney disease, stage 3a; R79.89 Other specified abnormal findings of blood chemistry

== ENCOUNTER 2023-07-29 08:32 | Emergency (ER) | payer MEDICARE ==
[~2023-07-29] VITALS: Ht 180.3 cm; Wt 93.0 kg
[2023-07-29 09:19] LABS: BASO % 0.3 % (0.0-1.0); EOS # 0.1 10*3/uL (0.0-0.4); EOS % 2.2 % (1.0-4.0); HEMATOCRIT 48.4 % (42.0-52.0); LYMPH # 1.5 10*3/uL (1.3-4.4); LYMPH % 23.1 % (27.0-41.0); MEAN CELL VOLUME 99.2 fl (80.0-94.0); MEAN CORPUSCULAR HGB 33.2 pg (27.0-31.0); MEAN CORPUSCULAR HGB CONC 33.5 g/dl (33.0-37.0); MEAN PLATELET VOLUME 11.1 fl (9.6-12.3); MONO # 0.7 10*3/uL (0.1-1.0); MONO % 10.4 % (3.0-9.0); NEUT % 63.7 % (47.0-73.0); PLATELET COUNT AUTOMATED 160 10*3/uL (130-400); RED BLOOD COUNT 4.88 10*6/uL (4.50-5.90); RED CELL DISTRI WIDTH 12.5 % (0-14.5); WHITE BLOOD COUNT 6.3 10*3/uL (4.8-10.8)
[2023-07-29 09:32] LABS: ACT PARTIAL THROMBO TIME 27.9 SECONDS (20.0-32.1)
[2023-07-29 09:41] LABS: ALKALINE PHOSPHATASE 81 U/L (46-116); BUN 14 mg/dl (9-23); CHLORIDE 107 mmol/L (98-107); LIPASE 37 U/L (12-53); POTASSIUM 4.1 mmol/L (3.4-5.1); SGPT/ALT 28 U/L (5-49)
[2023-07-29 12:17] LABS: BILIRUBIN Negative (Negative); BLOOD Negative (Negative); CLARITY Clear (Clear); COLOR Yellow (Yellow); GLUCOSE Negative (Negative); KETONE Negative (Negative); LEUKO ESTERASE Negative (Negative); NITRITE Negative (Negative); SPECIFIC GRAVITY 1.015 (1.001-1.030); UROBILINOGEN 0.2 E.U./dl (0.0-1.0)
[2023-07-29 12:26] LABS: EPITHELIAL CELLS 0-2; MUCOUS 1+; WBC 0-2 wbc/hpf (0-5)
== END 2023-07-29 13:17 | disposition home or self-care (01) ==
LOC: ED 08:32
PROVIDERS: Emergency Medicine
DX: R53.1 Weakness (principal); R09.81 Nasal congestion; R06.02 Shortness of breath; I10 Essential (primary) hypertension; I25.2 Old myocardial infarction; E78.00 Pure hypercholesterolemia, unspecified; I48.91 Unspecified atrial fibrillation; Z88.0 Allergy status to penicillin; Z98.890 Other specified postprocedural states; Z95.5 Presence of coronary angioplasty implant and graft; Z87.891 Personal history of nicotine dependence

== ENCOUNTER 2024-10-06 00:39 | Emergency (ER) | payer MEDICARE ==
[~2024-10-06] VITALS: Wt 97.5 kg
[2024-10-06 01:18] LABS: BASO % 0.2 % (0.0-1.0); EOS % 0.3 % (1.0-4.0); HEMATOCRIT 44.7 % (42.0-52.0); MEAN CELL VOLUME 96.5 fl (80.0-94.0); MEAN CORPUSCULAR HGB CONC 34.2 g/dl (33.0-37.0); MEAN PLATELET VOLUME 10.9 fl (9.6-12.3); MONO # 0.8 10*3/uL (0.1-1.0); MONO % 12.9 % (3.0-9.0); NEUT # 4.7 10*3/uL (2.3-7.9); NEUT % 75.9 % (47.0-73.0); PLATELET COUNT AUTOMATED 137 10*3/uL (130-400); RED BLOOD COUNT 4.63 10*6/uL (4.50-5.90); RED CELL DISTRI WIDTH 12.4 % (0-14.5); WHITE BLOOD COUNT 6.1 10*3/uL (4.8-10.8)
[2024-10-06 01:33] LABS: POTASSIUM 4.3 mmol/L (3.4-5.1)
[2024-10-06] MEDS ORDERED: MAGNESIUM OXIDE 400 MG TAB PO ONE (01:45)
[2024-10-06 03:17] LABS: BILIRUBIN Negative (Negative); BLOOD Negative (Negative); CLARITY Clear (Clear); COLOR Yellow (Yellow); GLUCOSE Negative (Negative); KETONE Trace (Negative); LEUKO ESTERASE Negative (Negative); NITRITE Negative (Negative); PH 5.5 (4.5-8.0); SPECIFIC GRAVITY 1.025 (1.001-1.030)
[2024-10-06 03:34] LABS: MUCOUS 1+; WBC 0-2 wbc/hpf (0-5)
== END 2024-10-06 04:13 | disposition home or self-care (01) ==
LOC: ED 00:39
PROVIDERS: Internal Medicine
DX: I48.91 Unspecified atrial fibrillation (principal); I12.9 Hypertensive chronic kidney disease with stage 1 through stage 4 chronic kidney disease, or unspecified chronic kidney disease; N18.32 Chronic kidney disease, stage 3b; E78.00 Pure hypercholesterolemia, unspecified; Z79.899 Other long term (current) drug therapy; Z88.0 Allergy status to penicillin; Z98.890 Other specified postprocedural states